=== PATIENT | male | born 1940 ===

== ENCOUNTER 2021-04-04 09:30 | Inpatient (IN) | payer OTHER ==
[~2021-04-04] VITALS: Ht 165.1 cm; Wt 83.9 kg
[2021-04-11] MEDS ORDERED: DIAZEPAM5 MG PO (14:47)
[2021-04-11] MEDS ORDERED: AMOX-CLAV 875-1 EACH PO (14:47)
[2021-04-11] MEDS ORDERED: MEDROLPACK PO (14:47)
[2021-04-11] MEDS ORDERED: COLACE100 MG PO (14:47)
[2021-04-11] MEDS ORDERED: PERCOCET 5-3251 EACH PO (14:47)
[2021-04-11] MEDS ORDERED: NEURONTIN800 MG PO (14:47)
== END 2021-04-12 15:18 | DRG 455 ==
LOC: SURG 04-11 09:30 → O/R 04-11 11:23 → PED 04-11 17:43 → SEC-K 04-11 19:10 → PED 04-11 19:12 → SURG 04-11 22:00 → PED 04-12 15:18
PROVIDERS: ADMIT Orthopaedic Surgery Orthopaedic Surgery of the Spine; ATTEND Orthopaedic Surgery Orthopaedic Surgery of the Spine
PROC: 0SG00J1 Fusion of Lumbar Vertebral Joint with Synthetic Substitute, Posterior Approach, Posterior Column, Open Approach (ICD-10-PCS; 2021-04-11)
PROC: 07DR3ZZ Extraction of Iliac Bone Marrow, Percutaneous Approach (ICD-10-PCS; 2021-04-11)
PROC: XRGB0F3 Fusion of Lumbar Vertebral Joint using Radiolucent Porous Interbody Fusion Device, Open Approach, New Technology Group 3 (ICD-10-PCS; principal; 2021-04-11 22:00)
DX: M43.16 Spondylolisthesis, lumbar region (principal); M48.062 Spinal stenosis, lumbar region with neurogenic claudication; M96.1 Postlaminectomy syndrome, not elsewhere classified; I10 Essential (primary) hypertension